=== PATIENT | male | born 1945 | race Caucasian/White ===

== ENCOUNTER 2018-01-18 17:10 | Inpatient (IN) | payer MEDICARE, OTHER ==
[2018-01-18] MEDS ORDERED: ACETAMINOPHEN 325 MG TABLET. PO (19:00)
[2018-01-18 20:18] LABS: BASO % 0 % (0-3); EOS % 1 % (0-3); HEMATOCRIT 30.9 % (39.0-53.0); HEMOGLOBIN 10.2 g/dL (13.0-17.5); LYMPH # 3.2 x10^3/uL (1.0-4.8); LYMPH % 75 % (24-48); MEAN CORPUSCULAR HEMOGLOBIN 31 pg (25-35); MEAN CORPUSCULAR HGB CONC 33 g/dL (31-37); MEAN CORPUSCULAR VOLUME 95 fL (79-100); MONO # 0.4 x10^3/uL (0.0-1.1); MONO % 10 % (0-9); NEUT # 0.6 x10^3uL (1.8-7.7); NEUT % 14 % (31-73); PLATELET COUNT 30 x10^3/uL (140-400); RED BLOOD COUNT 3.26 x10^6/uL (4.30-5.70); RED CELL DISTRIBUTION WIDTH 16.7 % (11.5-14.5); WHITE BLOOD COUNT 4.2 x10^3/uL (4.0-11.0)
[2018-01-18 20:33] LABS: ALBUMIN 2.6 g/dL (3.4-5.0); ALBUMIN/GLOBULIN RATIO 0.8 (1.0-1.7); ALK PHOS 171 U/L (46-116); ALT (SGPT) 18 U/L (16-63); ANION GAP 17 (6-14); AST (SGOT) 44 U/L (15-37); BLOOD UREA NITROGEN 50 mg/dL (8-26); BUN/CREATININE RATIO 20 (6-20); CALCIUM 8.5 mg/dL (8.5-10.1); CARBON DIOXIDE 20 mmol/L (21-32); CHLORIDE 105 mmol/L (98-107); CREATININE 2.5 mg/dL (0.7-1.3); GFR 25.7; GLUCOSE 122 mg/dL (70-99); POTASSIUM 4.2 mmol/L (3.5-5.1); SODIUM 142 mmol/L (136-145); TOTAL BILIRUBIN 0.3 mg/dL (0.2-1.0); TOTAL PROTEIN 5.9 g/dL (6.4-8.2)
[2018-01-18 20:53] LABS: ADD MAN DIFF? YES
[2018-01-18 21:05] LABS: % ATYL 2 % (0-0); % BANDS 2 % (0-9); % BASOS 1 % (0-3); % EOS 2 % (0-5); % LYMPHS 84 % (24-48); % SEGS 9 % (35-66); NUCLEATED RBC 9
[2018-01-18] MEDS: IV NORMAL SALINE 1000ML BAG 1,000 ML IV (21:05)
[2018-01-18 21:06] LABS: PLT ESTIMATE DECREASED (ADEQUATE)
[2018-01-18] MEDS: busPIRone 5 MG TABLET. PO (21:07)
[2018-01-18] MEDS: SENNOSIDES/DOCUSATE 8.6/50MG TABLET. PO (21:07)
[2018-01-18 21:08] LABS: POLYCHROMASIA SLIGHT; TOXIC GRANULATION MOD
[2018-01-18] MEDS: QUEtiapine 25 MG TABLET. PO (21:08)
[2018-01-19 05:02] LABS: ADD MAN DIFF? NO
[2018-01-19 05:50] LABS: ALBUMIN 2.1 g/dL (3.4-5.0); ALBUMIN/GLOBULIN RATIO 0.7 (1.0-1.7); ALK PHOS 167 U/L (46-116); ALT (SGPT) 20 U/L (16-63); ANION GAP 12 (6-14); AST (SGOT) 42 U/L (15-37); BLOOD UREA NITROGEN 45 mg/dL (8-26); BUN/CREATININE RATIO 20 (6-20); CALCIUM 7.9 mg/dL (8.5-10.1); CARBON DIOXIDE 22 mmol/L (21-32); CHLORIDE 109 mmol/L (98-107); CREATININE 2.2 mg/dL (0.7-1.3); GFR 29.7; GLUCOSE 87 mg/dL (70-99); POTASSIUM 4.6 mmol/L (3.5-5.1); SODIUM 143 mmol/L (136-145); TOTAL BILIRUBIN 0.4 mg/dL (0.2-1.0); TOTAL PROTEIN 5.3 g/dL (6.4-8.2)
[2018-01-19 05:54] LABS: BASO % 0 % (0-3); EOS % 1 % (0-3); HEMATOCRIT 24.5 % (39.0-53.0); HEMOGLOBIN 8.2 g/dL (13.0-17.5); LYMPH # 2.4 x10^3/uL (1.0-4.8); LYMPH % 74 % (24-48); MEAN CORPUSCULAR HEMOGLOBIN 32 pg (25-35); MEAN CORPUSCULAR HGB CONC 33 g/dL (31-37); MEAN CORPUSCULAR VOLUME 94 fL (79-100); MONO # 0.4 x10^3/uL (0.0-1.1); MONO % 12 % (0-9); NEUT # 0.4 x10^3uL (1.8-7.7); NEUT % 13 % (31-73); PLATELET COUNT 26 x10^3/uL (140-400); RED CELL DISTRIBUTION WIDTH 16.6 % (11.5-14.5); WHITE BLOOD COUNT 3.2 x10^3/uL (4.0-11.0)
[2018-01-19] MEDS: LEVOTHYROXINE 25 MCG TABLET. PO (06:20)
[2018-01-19] MEDS: IV NORMAL SALINE 1000ML BAG 1,000 ML IV ×2 (06:20→17:42)
[2018-01-19] MEDS: SENNOSIDES/DOCUSATE 8.6/50MG TABLET. PO ×2 (08:40→20:40)
[2018-01-19] MEDS: QUEtiapine 25 MG TABLET. PO ×3 (08:40→20:41)
[2018-01-19] MEDS: busPIRone 5 MG TABLET. PO ×4 (08:40→20:41)
[2018-01-19] MEDS: DULoxetine HCL 30 MG CAPSULE.DR PO (08:40)
[2018-01-19 08:47] LABS: RETIC COUNT 0.9 % (0.5-2.5)
[2018-01-19 09:29] LABS: % SAT IRON 70 % (15-34); IRON,SERUM 155 ug/dL (65-175)
[2018-01-19 09:44] LABS: FERRITIN 384 ng/mL (26-388)
[2018-01-19 09:58] LABS: VITAMIN-B12 222 pg/mL (247-911)
[2018-01-19 09:59] LABS: FOLATE 2.05 ng/ml (3.2-20.0)
[2018-01-19] MEDS: CYANOCOBALAMIN (VITAMIN B-12) 1,000 MCG/ML VIAL IM (11:52)
[2018-01-19] MEDS: FOLIC ACID 1 MG TABLET. PO (11:53)
[2018-01-20] MEDS: IV NORMAL SALINE 1000ML BAG 1,000 ML IV ×3 (03:38→20:29)
[2018-01-20 05:39] LABS: ADD MAN DIFF? NO
[2018-01-20 05:58] LABS: BASO % 0 % (0-3); EOS % 1 % (0-3); HEMATOCRIT 25.4 % (39.0-53.0); HEMOGLOBIN 8.5 g/dL (13.0-17.5); LYMPH # 2.5 x10^3/uL (1.0-4.8); LYMPH % 74 % (24-48); MEAN CORPUSCULAR HEMOGLOBIN 32 pg (25-35); MEAN CORPUSCULAR HGB CONC 34 g/dL (31-37); MEAN CORPUSCULAR VOLUME 94 fL (79-100); MONO # 0.3 x10^3/uL (0.0-1.1); MONO % 9 % (0-9); NEUT # 0.5 x10^3uL (1.8-7.7); NEUT % 16 % (31-73); PLATELET COUNT 27 x10^3/uL (140-400); RED CELL DISTRIBUTION WIDTH 16.6 % (11.5-14.5); WHITE BLOOD COUNT 3.3 x10^3/uL (4.0-11.0)
[2018-01-20 06:05] LABS: ANION GAP 12 (6-14); BLOOD UREA NITROGEN 34 mg/dL (8-26); CARBON DIOXIDE 21 mmol/L (21-32); CHLORIDE 109 mmol/L (98-107); CREATININE 1.8 mg/dL (0.7-1.3); GFR 37.5; GLUCOSE 85 mg/dL (70-99); POTASSIUM 4.8 mmol/L (3.5-5.1); SODIUM 142 mmol/L (136-145)
[2018-01-20 06:09] LABS: CREATINE KINASE 26 U/L (39-308)
[2018-01-20] MEDS: LEVOTHYROXINE 25 MCG TABLET. PO (06:12)
[2018-01-20 07:55] LABS: BILIRUBIN,URINE NEGATIVE (NEG); CLARITY,URINE CLEAR; COLOR,URINE YELLOW; GLUCOSE,URINE NEGATIVE (NEG); NITRITE,URINE NEGATIVE (NEG); PH,URINE 7.5; PROTEIN,URINE NEGATIVE (NEG-TRACE); UROBILINOGEN,URINE 0.2 mg/dL (0.2 mg/dL)
[2018-01-20 08:06] LABS: BACTERIA,URINE FEW /HPF (0-FEW); RBC,URINE RARE /HPF (0-2); WBC,URINE OCC /HPF (0-4)
[2018-01-20] MEDS: QUEtiapine 25 MG TABLET. PO ×3 (08:29→20:29)
[2018-01-20] MEDS: DULoxetine HCL 30 MG CAPSULE.DR PO (08:29)
[2018-01-20] MEDS: FOLIC ACID 1 MG TABLET. PO (08:29)
[2018-01-20] MEDS: CYANOCOBALAMIN (VITAMIN B-12) 1,000 MCG/ML VIAL IM (08:29)
[2018-01-20] MEDS: busPIRone 5 MG TABLET. PO ×4 (08:29→20:29)
[2018-01-20] MEDS: SENNOSIDES/DOCUSATE 8.6/50MG TABLET. PO ×2 (09:00→20:30)
[2018-01-21 06:19] LABS: HEMATOCRIT 25.6 % (39.0-53.0); HEMOGLOBIN 8.7 g/dL (13.0-17.5); MEAN CORPUSCULAR HEMOGLOBIN 32 pg (25-35); MEAN CORPUSCULAR HGB CONC 34 g/dL (31-37); MEAN CORPUSCULAR VOLUME 94 fL (79-100); RED BLOOD COUNT 2.72 x10^6/uL (4.30-5.70); RED CELL DISTRIBUTION WIDTH 16.5 % (11.5-14.5); WHITE BLOOD COUNT 3.6 x10^3/uL (4.0-11.0)
[2018-01-21] MEDS: LEVOTHYROXINE 25 MCG TABLET. PO (06:24)
[2018-01-21] MEDS: IV NORMAL SALINE 1000ML BAG 1,000 ML IV ×2 (06:24→09:37)
[2018-01-21 06:46] LABS: ALBUMIN 2.2 g/dL (3.4-5.0); ALBUMIN/GLOBULIN RATIO 0.7 (1.0-1.7); ALK PHOS 236 U/L (46-116); ALT (SGPT) 23 U/L (16-63); ANION GAP 14 (6-14); AST (SGOT) 35 U/L (15-37); BLOOD UREA NITROGEN 26 mg/dL (8-26); BUN/CREATININE RATIO 17 (6-20); CARBON DIOXIDE 19 mmol/L (21-32); CHLORIDE 110 mmol/L (98-107); CREATININE 1.5 mg/dL (0.7-1.3); GFR 46.3; GLUCOSE 87 mg/dL (70-99); POTASSIUM 4.4 mmol/L (3.5-5.1); SODIUM 143 mmol/L (136-145); TOTAL BILIRUBIN 0.4 mg/dL (0.2-1.0); TOTAL PROTEIN 5.5 g/dL (6.4-8.2)
[2018-01-21 07:56] LABS: PLATELET COUNT 22 x10^3/uL (140-400)
[2018-01-21] MEDS: FOLIC ACID 1 MG TABLET. PO (08:25)
[2018-01-21] MEDS: DULoxetine HCL 30 MG CAPSULE.DR PO (08:26)
[2018-01-21] MEDS: CYANOCOBALAMIN (VITAMIN B-12) 1,000 MCG/ML VIAL IM (08:26)
[2018-01-21] MEDS: busPIRone 5 MG TABLET. PO ×4 (08:26→20:35)
[2018-01-21] MEDS: QUEtiapine 25 MG TABLET. PO ×3 (08:26→20:35)
[2018-01-21] MEDS: SENNOSIDES/DOCUSATE 8.6/50MG TABLET. PO ×2 (09:00→20:35)
[2018-01-22] MEDS: LEVOTHYROXINE 25 MCG TABLET. PO (06:19)
[2018-01-22 06:42] LABS: HEMATOCRIT 25.1 % (39.0-53.0); HEMOGLOBIN 8.6 g/dL (13.0-17.5); MEAN CORPUSCULAR HEMOGLOBIN 32 pg (25-35); MEAN CORPUSCULAR HGB CONC 34 g/dL (31-37); MEAN CORPUSCULAR VOLUME 94 fL (79-100); RED BLOOD COUNT 2.68 x10^6/uL (4.30-5.70); RED CELL DISTRIBUTION WIDTH 16.6 % (11.5-14.5); WHITE BLOOD COUNT 3.9 x10^3/uL (4.0-11.0)
[2018-01-22 06:51] LABS: PLATELET COUNT 21 x10^3/uL (140-400)
[2018-01-22 06:55] LABS: ANION GAP 14 (6-14); BLOOD UREA NITROGEN 23 mg/dL (8-26); CALCIUM 7.9 mg/dL (8.5-10.1); CARBON DIOXIDE 19 mmol/L (21-32); CHLORIDE 110 mmol/L (98-107); CREATININE 1.5 mg/dL (0.7-1.3); GFR 46.3; GLUCOSE 89 mg/dL (70-99); POTASSIUM 4.3 mmol/L (3.5-5.1); SODIUM 143 mmol/L (136-145)
[2018-01-22] MEDS: SENNOSIDES/DOCUSATE 8.6/50MG TABLET. PO ×2 (09:00→20:33)
[2018-01-22] MEDS: CYANOCOBALAMIN (VITAMIN B-12) 1,000 MCG/ML VIAL IM (11:03)
[2018-01-22] MEDS: FOLIC ACID 1 MG TABLET. PO (11:03)
[2018-01-22] MEDS: busPIRone 5 MG TABLET. PO ×4 (11:04→20:33)
[2018-01-22] MEDS: DULoxetine HCL 30 MG CAPSULE.DR PO (11:04)
[2018-01-22] MEDS: QUEtiapine 25 MG TABLET. PO ×3 (11:04→20:33)
[2018-01-23] MEDS: OLANZapine 2.5 MG TABLET PO (01:21)
[2018-01-23] MEDS: LEVOTHYROXINE 25 MCG TABLET. PO (06:07)
[2018-01-23 08:04] LABS: ANION GAP 17 (6-14); BLOOD UREA NITROGEN 34 mg/dL (8-26); CALCIUM 8.8 mg/dL (8.5-10.1); CARBON DIOXIDE 18 mmol/L (21-32); CHLORIDE 108 mmol/L (98-107); GFR 33.2; GLUCOSE 102 mg/dL (70-99); POTASSIUM 4.4 mmol/L (3.5-5.1); SODIUM 143 mmol/L (136-145)
[2018-01-23 09:09] LABS: ADD MAN DIFF? NO
[2018-01-23 09:16] LABS: BASO % 0 % (0-3); EOS % 1 % (0-3); HEMATOCRIT 22.6 % (39.0-53.0); HEMOGLOBIN 7.8 g/dL (13.0-17.5); LYMPH # 2.7 x10^3/uL (1.0-4.8); LYMPH % 74 % (24-48); MEAN CORPUSCULAR HEMOGLOBIN 32 pg (25-35); MEAN CORPUSCULAR HGB CONC 35 g/dL (31-37); MEAN CORPUSCULAR VOLUME 93 fL (79-100); MONO # 0.5 x10^3/uL (0.0-1.1); MONO % 13 % (0-9); NEUT # 0.4 x10^3uL (1.8-7.7); NEUT % 12 % (31-73); RED BLOOD COUNT 2.42 x10^6/uL (4.30-5.70); RED CELL DISTRIBUTION WIDTH 16.7 % (11.5-14.5); WHITE BLOOD COUNT 3.7 x10^3/uL (4.0-11.0)
[2018-01-23 09:45] LABS: PLATELET COUNT 10 x10^3/uL (140-400)
[2018-01-23] MEDS: QUEtiapine 25 MG TABLET. PO ×3 (10:03→20:13)
[2018-01-23] MEDS: SENNOSIDES/DOCUSATE 8.6/50MG TABLET. PO ×2 (10:04→20:13)
[2018-01-23] MEDS: FOLIC ACID 1 MG TABLET. PO (10:04)
[2018-01-23] MEDS: busPIRone 5 MG TABLET. PO ×4 (10:05→20:14)
[2018-01-23] MEDS: CYANOCOBALAMIN (VITAMIN B-12) 1,000 MCG/ML VIAL IM (10:05)
[2018-01-23] MEDS: DULoxetine HCL 30 MG CAPSULE.DR PO (10:05)
[2018-01-23 13:41] LABS: SECOND ABO/RH TYPE 1 1
[2018-01-24] MEDS: LEVOTHYROXINE 25 MCG TABLET. PO (06:09)
[2018-01-24 07:32] LABS: MISCELLANEOUS SEE SEPARATE REPORT
[2018-01-24] MEDS: SENNOSIDES/DOCUSATE 8.6/50MG TABLET. PO (09:18)
[2018-01-24] MEDS: QUEtiapine 25 MG TABLET. PO (09:19)
[2018-01-24] MEDS: FOLIC ACID 1 MG TABLET. PO (09:19)
[2018-01-24] MEDS: DULoxetine HCL 30 MG CAPSULE.DR PO (09:19)
[2018-01-24] MEDS: busPIRone 5 MG TABLET. PO (09:19)
[2018-01-24] MEDS: CYANOCOBALAMIN (VITAMIN B-12) 1,000 MCG/ML VIAL IM (09:20)
[2018-01-25] MEDS ORDERED: ERGOCALCIFEROL (VITAMIN D2) 50,000 UNIT CAPSULE. PO (09:00)
== END 2018-01-24 11:59 | disposition home or self-care (01) | DRG 834 ==
LOC: 5 SOUTH 17:10
PROC: 30233R1 Transfusion of Nonautologous Platelets into Peripheral Vein, Percutaneous Approach (ICD-10-PCS; principal; 2018-01-23)
DX: C91.00 Acute lymphoblastic leukemia not having achieved remission (principal); E43 Unspecified severe protein-calorie malnutrition; N17.9 Acute kidney failure, unspecified; D61.818 Other pancytopenia; E87.2 Acidosis; C83.50 Lymphoblastic (diffuse) lymphoma, unspecified site; D69.59 Other secondary thrombocytopenia; R16.2 Hepatomegaly with splenomegaly, not elsewhere classified; D53.9 Nutritional anemia, unspecified; Z68.31 Body mass index [BMI] 31.0-31.9, adult; E03.9 Hypothyroidism, unspecified; E53.8 Deficiency of other specified B group vitamins; F01.50 Vascular dementia, unspecified severity, without behavioral disturbance, psychotic disturbance, mood disturbance, and anxiety; F41.9 Anxiety disorder, unspecified; F42.9 Obsessive-compulsive disorder, unspecified; K21.9 Gastro-esophageal reflux disease without esophagitis; N18.3 Chronic kidney disease, stage 3 (moderate); Z86.73 Personal history of transient ischemic attack (TIA), and cerebral infarction without residual deficits; G47.00 Insomnia, unspecified; Z51.5 Encounter for palliative care
CPT/HCPCS: 36415; 76700; 80048; 80053; 81001; 82550; 82607; 82728; 82746; 83540; 83550; 85007; 85025; 85027; 85045; 86850; 86900; 86901; 88184; 88185; 97163-GP; 97166-GO; J3420; J7030; P9035